=== PATIENT | male | born 1985 | race African-American/Black ===

== ENCOUNTER 2024-02-18 18:30 | Emergency (ER) | payer OTHER ==
[~2024-02-18] VITALS: Ht 182.9 cm; Wt 76.3 kg
[2024-02-19] MEDS ORDERED: CEPH500C PO (00:42)
[2024-02-19 00:45] VITALS: BP 123/69; TEMP 97.9; O2SAT 100
== END 2024-02-19 01:00 | disposition home or self-care (01) ==
LOC: M ED 18:30
DX: S90.821A Blister (nonthermal), right foot, initial encounter (principal); S90.822A Blister (nonthermal), left foot, initial encounter; Y92.9 Unspecified place or not applicable; Y93.9 Activity, unspecified; Y99.9 Unspecified external cause status; Z79.2 Long term (current) use of antibiotics